=== PATIENT | female | born 1960 | race Caucasian/White ===

== ENCOUNTER 2021-06-03 17:19 | Emergency (ER) | payer MEDICARE, OTHER, SELFPAY ==
--- NOTE | ~2021-06-03 | XR_ITS ---
XR chest 2V 06/03/2021 17:44 Indication: Left-sided chest pain and shortness of breath Procedure: AP and lateral views of the chest Comparison: Comparison to multiple prior studies sequentially, with oldest reviewed study dated 10/30. Findings: Right basilar atelectasis/scarring. Elevated right diaphragm. There is scoliosis. Cardiomeg haven. There is right shoulder arthroplasty. There is severe glenohumeral joint osteoarthritis. No foca l pneumonia, pleural effusion, edema or pneumothorax. Impression: 1: Right basilar atelectasis/scarring with elevation the right diaphragm. Reviewed, dictated and finalized at location A. Impression: 1: Right basilar atelectasis/scarring with elevation the right diaphragm.
--- NOTE | 2021-06-03 17:21 | ECG_ITS ---
Measurements Intervals [place] Rate: 119 P: 66 NE: 147 QRS: -20 QRSD: 82 T: 5 QT: 306 QTc: 432 Interpretive Statements SINUS TACHYCARDIA LOW QRS VOLTAGE IN PRECORDIAL LEADS BORDERLINE R WAVE PROGRESSION, ANTERIOR LEADS INFERIOR INFARCT, AGE INDETERMINATE BORDERLINE T WAVE ABNORMALITY- ANTERIOR LEADS BASELINE ARTIFACT- I, II, III, AVR, AVL, AVF, V1-V6 ABNORMAL ECG Electronically Signed On 06-03-2021 19:55:01 CDT by Jerardo Grubbs D.O.
[2021-06-03 17:52] VITALS: BP 148/104; PULSE 118; TEMP 37.1; O2SAT 96
[2021-06-03 17:57] VITALS: BP 170/100; PULSE 117; RESP 18; TEMP 36.7; O2SAT 98
[2021-06-03 18:03] LABS: Basophils Absolute Auto 0.1 K/mm3 (0.0-0.1); Basophils Percent Auto 0.8 % (0.2-1.2); Eosinophils Percent Auto 0.1 % (0-4.4); Hematocrit 32.3 % (37.0-47.0); Hemoglobin 10.2 g/dL (12.0-15.0); Immature Granulocyte Absolute 0.09 K/mm3 (0.00-0.031); Lymphocytes Absolute Auto 1.46 K/mm3 (0.9-3.2); Lymphocytes Percent Auto 16.7 % (18.3-44.2); Mean Corpuscular HGB Conc 31.6 g/dl (32-36); Mean Corpuscular Hemoglobin 27.3 pg (26-34); Mean Corpuscular Volume 86.6 fl (80-100); Mean Platelet Volume 8.9 fl (7.4-10.4); Monocytes Absolute Auto 0.5 K/mm3 (0.1-0.6); Monocytes Percent Auto 6.2 % (2.6-8.5); Neutrophils Absolute Auto 6.6 K/mm3 (1.3-6.7); Neutrophils Percent Auto 75.2 % (45.5-73.1); Platelet Count Result 358 k/mm3 (150-375); Red Blood Count 3.73 M/mm3 (4.2-5.4); White Blood Count 8.8 K/mm3 (4.5-10.0)
[2021-06-03 18:17] LABS: Anion Gap 14 mmol/L (8-16); Blood Urea Nitrogen 13 mg/dL (7-17); Calcium 9.2 mg/dL (8.4-10.2); Carbon Dioxide 24 mmol/L (22-30); Chloride 98 mmol/L (98-107); Estimated CRCL calculation 73 ml/min; Estimated Glomerular Filt Rate > 60; Glucose 85 mg/dL (65-105); Potassium 4.4 mmol/L (3.4-5.0); Sodium 136 mmol/L (137-145)
[2021-06-03 18:29] LABS: Troponin I < 0.012 ng/mL (0.000-0.034)
[2021-06-03 18:59] LABS: INR 0.9; Prothrombin Time 12.3 Seconds (11.1-14.7)
[2021-06-03 19:00] LABS: Partial Thromboplastin Time 31.6 SECONDS (22.3-36.8)
[2021-06-03 20:39] LABS: Troponin I < 0.012 ng/mL (0.000-0.034)
[2021-06-03 20:55] VITALS: BP 159/100; PULSE 117; RESP 18; O2SAT 98
[2021-06-03] MEDS: ONDANSETRON INJ 4 MG/2 ML VIAL IV PUSH (21:21)
[2021-06-03] MEDS: SODIUM CHLORIDE 0.9% IV 1,000 ML 999 ML IV CONT (21:21)
[2021-06-03] MEDS: LORazepam INJ (*CRX) 2 MG/ML VIAL 1 MG IV PUSH (21:30)
--- NOTE | 2021-06-03 22:33 | ED.CHESTPAIN ---
HPI - Chest Pain General Chief Complaint: Chest Pain Stated Complaint: chest pain, L arm pain Time Seen by Provider: 06/03/21 20:46 Source: patient Mode of arrival: ambulatory Limitations: no limitations History of Present Illness HPI narrative: 60-year-old with history of MICA, alcoholism here with complaints of chest pain. Patient states that she is basically here for alcohol abuse. She states that she gets depressed once in a while whenever she thinks about her son. She states she binge drinks whenever she thinks about her son. She states she is not suicidal. complaint: chest discomfort Onset (ago): day(s) (1) Timing of current episode: constant Severity: mild Quality: aching Exacerbating factors: nothing Risk Factors Coronary artery disease risk factors: none Thoracic aortic dissection risk factors: none Related Data Allergies Allergy/AdvReac Type Severity Reaction Status Date / Time butorphanol Allergy Severe FELLING Verified 06/03/21 22:14 DISCONNECTED, PRICKLY SKIN codeine Allergy Unknown Unknown Verified 06/03/21 22:14 morphine Allergy Unknown Unknown Verified 06/03/21 22:14 OPIATEAGONISTS Allergy Mild Unknown Uncoded 06/03/21 22:14 Review of Systems Review of Systems: All systems reviewed & are unremarkable except as noted in HPI and below Constitutional: Constitutional: Reports no additional constitutional complaints Eyes: Eyes: Reports no additional eye complaints ENT: Reports system reviewed and no additional complaints, except as documented Cardiovascular: Cardiovascular: Reports as per HPI Respiratory: Respiratory: Reports no additional respiratory complaints Gastrointestinal: Gastrointestinal: Reports no additional gastrointestinal complaints Musculoskeletal: Musculoskeletal: Reports no additional musculoskeletal complaints Neurologic: Reports system reviewed and no additional complaints, except as documented [facility] Family History Family History Mother Diabetes mellitus Family history of cardiovascular disease Family history of arthritis Father Family history of congenital heart disease Cerebrovascular accident, Onset Age: 62 Other Family history of malignant neoplasm Hypertension Social History Social History Smoking status: Never smoker Alcohol intake: never Gender identity (if verbalized by the patient): Female Exam Narrative: Exam Narrative: GENERAL: Well-appearing,obese, and in no acute distress. HEAD: Normocephalic, atraumatic. EYES: PERRLA and EOMI.. NECK: Supple. CHEST: Clear to auscultation. No respiratory distress. HEART: Regular rate and rhythm. No murmur heard. Normal peripheral pulses. ABDOMEN: Soft, nontender, nondistended, normal active bowel sounds. EXTREMITIES: Normal range of motion. No edema. SKIN: Warm, dry, no rash. NEURO: No focal deficits. Alert and oriented x3. PSYCH: Normal mood and affect. Course Course Emergency Course: Patient received a liter of fluid, 4 mg Zofran and Ativan. She states that she is feeling much better. I informed her about her lab work and x-ray and EKG findings. Advised her to consider alcohol rehab. She does feel comfortable going home. Vital Signs Vital signs: Vital Signs Temperature 37.1 C 06/03/21 17:52 Pulse Rate 118 H 06/03/21 17:52 Blood Pressure 148/104 H 06/03/21 17:52 Pulse Oximetry 96 06/03/21 17:52 Temperature 36.7 C 06/03/21 17:57 Pulse Rate 117 H 06/03/21 20:55 Respiratory Rate 18 06/03/21 20:55 Blood Pressure 159/100 H 06/03/21 20:55 Pulse Oximetry 98 06/03/21 20:55 MDM - Chest Pain Differential Diagnosis Differential diagnosis: Likely fracture of rib, unstable angina pectoris and atypical chest pain Lab Data Result diagrams: 06/03/21 17:48 06/03/21 17:48 Labs: Lab Results 06/03/21
[2021-06-03] MEDS: ONDANSETRON HCL ODT 4 MG TABLET PO (23:49)
[2021-06-03 23:57] VITALS: BP 159/84; PULSE 89; RESP 20; O2SAT 98
== END 2021-06-04 | disposition home or self-care (01) ==
PROVIDERS: Emergency Medicine; Emergency Provider Family Medicine; PCP Internal Medicine
DX: R07.89 Other chest pain (principal); F10.20 Alcohol dependence, uncomplicated; G47.33 Obstructive sleep apnea (adult) (pediatric); R00.0 Tachycardia, unspecified; R94.31 Abnormal electrocardiogram [ECG] [EKG]
CPT/HCPCS: 36415; 71046; 80048; 84484; 85025; 85610; 85730; 93005; 96361; 96374; 96375; 99284; A9270; J2060; J2405; J7030

== ENCOUNTER 2021-07-16 04:02 | Day surgery (SDC) | payer MEDICARE, SELFPAY ==
--- NOTE | 2021-07-16 07:16 | WPDHPUPDATE1 ---
History and Physical Update Update Date/Time: 07/16/21 07:16 History and Physical has been reviewed, including an updated exam of the patient. There are NO changes in the patient's condition. Risks, benefits, and alternatives have been discussed and questions answered. Patient agrees to proceed with procedure.
[2021-07-16] MEDS: LACTATED RINGERS 1,000 ML 30 ML IV CONT (07:42)
[2021-07-16 07:43] VITALS: BP 132/68; PULSE 116
--- NOTE | 2021-07-16 07:43 | WPDANESEPPF ---
Anes - Initial Pre Proc Eval Procedure: Operation Date: 07/16/21 08:15 Proposed Procedures p Release Dupuytren's Contracture Right Small Finger - Braydon Greenwood MD Date/Time: 07/16/21 07:43 Surgeon: Braydon Gerenwood MD Pre Op Diagnosis: dupuytrens contracture right little finger Patient Data Age: 60 Gender: F Height: Weight: Allergies Allergy/AdvReac Type Severity Reaction Status Date / Time codeine Allergy Severe Dyspnea / Verified 07/14/21 10:07 SOB morphine Allergy Severe Difficulty Verified 07/14/21 10:07 Breathing butorphanol AdvReac Severe FELLING Verified 07/15/21 15:19 DISCONNECTED, PRICKLY SKIN OPIATEAGONISTS AdvReac Mild Nausea Uncoded 07/15/21 15:19 Home Medications Medication Instructions Recorded Confirmed Type atorvastatin 40 mg PO DAILY 07/14/21 07/14/21 History calcium 250 mg PO DAILY 07/14/21 07/14/21 History certolizumab pegol [Cimzia] 400 mg SUBCUT 07/14/21 History duloxetine [Cymbalta] 60 mg PO DAILY 07/14/21 07/14/21 History gabapentin 900 mg PO HS 07/14/21 07/14/21 History losartan 100 mg PO DAILY 07/14/21 07/14/21 History multivitamin 1 cap PO DAILY 07/14/21 07/14/21 History Patient hx anesthesia problems: none Family hx anesthesia problems: none PMFSH Past Medical History Medical History (Updated 07/16/21 @ 07:44 by Thierno Arevalo MD) Morbid obesity Rheumatoid arthritis Surgical History Surgical History (Updated 07/16/21 @ 07:44 by Thierno Arevalo MD) History of gastric surgery Family History Family History Mother Diabetes mellitus Family history of cardiovascular disease Family history of arthritis Father Family history of congenital heart disease Cerebrovascular accident, Onset Age: 62 Other Family history of malignant neoplasm Hypertension Social History Social History Smoking status: Never smoker Alcohol intake: never Living arrangements: with family Gender identity (if verbalized by the patient): Female Spiritual care concerns: No Anes - Eval Final PreProcedure Day of Procedure 07/16/21 07:43 Patient weight: morbidly obese Heart: regular rate and rhythm Lungs: clear to auscultation Airway: Mallampati scale class II Neurological: alert and oriented Last oral intake: >/= 8 hours ASA classification: III Emergent: no Anesthetic plan: proceed Anesthesia type and monitoring: general GIVS and standard monitoring Informed Consent: The patient's anesthetic plan and its attendant risks and benefits were discussed with the patient/family/POA. Questions were solicited and answers provided to the satisfaction of the patient/family/POA.
--- NOTE | 2021-07-16 08:49 | SUR.OPER ---
BACITRACIN OINTMENT SENT HOME WITH PT FOR POST OP USE
[2021-07-16 09:55] VITALS: BP 160/80; PULSE 103; RESP 20; O2SAT 94
--- NOTE | 2021-07-16 10:21 | PM.OP ---
Procedure Note - Brief Procedure Note - Brief Date of procedure: 07/16/21 Pre-op diagnosis: dupuytrens contracture right little finger Post-op diagnosis: same Procedure performed: Partial palmar fasciectomy right small finger Anesthesia: GLMA Surgeon: Braydon Greenwood MD [employer] Caretaker: [facility] Estimated blood loss (mL): 0 Drains: No Packing: No Pathology: none sent Complications: No immediate complications Condition: stable Disposition: same day
[2021-07-16 10:35] VITALS: BP 159/75; PULSE 101; RESP 20
--- NOTE | 2021-07-16 11:06 | W.PM.PROC2 ---
Procedure Note - Detailed Date of Procedure 07/16/21 Pre-op Diagnosis dupuytrens contracture right little finger Post-op Diagnosis same Procedure Performed Partial palmar fasciectomy of the right small finger. Surgeon Braydon Greenwood MD [employer] [facility] Anesthesia MAC Indications Dupuytren's contracture the right little finger with minimal palmar cords Findings Thick pretendinous and lateral cords with rudimentary spiral cords, Description of Procedure The patient's small finger was marked in the holding area. The hand was carefully examined again, there were no significant cords reaching into the palm or to other fingers. She had a marked flexion contracture at the proximal interphalangeal joint and palpable nodules in the proximal and middle phalanges. She was taken to the operating room placed supine on the operating table a time-out was held and confirmed she was given IV sedation. The extremity was prepped and draped in usual fashion. The markings were placed down the midline to the distal palmar crease. A small amount of lidocaine with epinephrine was placed at the proximal end of the marking. The tourniquet was inflated to 250 mmHg. The volar midline incision was made extending to the distal palmar crease. The skin flaps were elevated to both sides. The neurovascular bundles were identified on both sides. These were dissected distally on both sides allowing removal of the contracted tissue. Full release of the flexion contracture was achieved. The markings were made for 2 Z-plasties. These were cut, rotated and inset with 5 0 nylon. The wound was closed with 5 0 nylon. About senior living through that the tourniquet was released. The finger did not pink up immediately. After completion of the closure, 2 milliliter of 2% lidocaine plain were injected at the base of the digit. Warm saline was used to bathe the digit for about 5 minutes. At that point pink color did return to the finger and we proceeded to apply the soft bandage. Estimated Blood Loss 0 Drains No Packing No Pathology none sent Complications No immediate complications Condition stable Disposition same day
== END 2021-07-16 10:50 | disposition home or self-care (01) ==
PROVIDERS: PCP Internal Medicine; Visit Provider Plastic Surgery
PROC: (CPT 26045; principal; 2021-07-16 08:15)
DX: M72.0 Palmar fascial fibromatosis [Dupuytren] (principal); M06.9 Rheumatoid arthritis, unspecified; Z98.84 Bariatric surgery status; E66.01 Morbid (severe) obesity due to excess calories
CPT/HCPCS: 26123; A9270; J2704; J3010; J7120

== ENCOUNTER 2021-08-12 14:44 | Outpatient (CLI) | payer MEDICARE, OTHER, SELFPAY ==
--- NOTE | ~2021-08-12 | CT_ITS ---
EXAMINATION: CT abdomen pelvis w con INDICATION: Right lower quadrant pain TECHNIQUE: Computed tomographic images of the abdomen and pelvis were obtained after the administrati on of 100 cc of Omnipaque 350 intravenous contrast. The dose-length product (DLP) was 1598.34 mGy-cm. Automated exposure control and iterative reconstruction technique were employed. COMPARISON: None available FINDINGS: There is elevation of the right hemidiaphragm with passive atelectasis of the right lower l obe. Bilateral breast implants are noted. The heart size is normal. Changes in the stomach are consis tent with gastric bypass surgery. The gallbladder is surgically absent. There is mild enlargement of the common bile duct and central intrahepatic ducts which is likely due to post cholecystectomy state . The liver, spleen, pancreas, and adrenal glands are normal. The kidneys are unremarkable. There are changes of mesh ventral hernia repair in the epigastrium. No pathologically enlarged abdominal or pe lvic lymph nodes are identified. There is no free intraperitoneal gas or evidence of bowel obstructio n. The appendix is normal. There are bilateral L4 pars defects with grade 1 anterolisthesis of L4 on L5. Severe spondylosis is noted L5-S1. IMPRESSION: 1. No CT correlate for the patient's symptoms. Reviewed, dictated and finalized at location A.
--- NOTE | ~2021-08-12 | XR_ITS ---
EXAMINATION: XR hip BI 2V w AP pelvis, XR sacrum coccyx min 2V, XR lumbar spine 2-3V DATE: 08/12/2021 at 1:31 PM INDICATION: Generalized pelvic/hip pain, right greater than left. TECHNIQUE: 1. AP and lateral views of the lumbar spine were obtained. 2. AP, angled AP and lateral views of the sacrum and coccyx were obtained. 3. AP view of the pelvis and AP, frog-leg lateral and crosstable lateral views of both the left and r ight hips were obtained. COMPARISON: None. FINDINGS: Lumbar spine: Lumbar levorotoscoliosis with 13 degrees levocurvature measured between L1 and L4. 10 mm anterolisthe sis L4 on L5. On the lateral view of the sacrum there is suggestion of possible L4 pars interarticula ris defect. Vertebral body heights are normal. Moderate disc height loss at T11-T12 and L4-L5 and mil d disc height loss at T10-T11, T12-L1, L1-L2 and L5-S1. Severe lower lumbar facet osteoarthritis. Pelvis, bilateral hips, sacrum and coccyx: Bone alignment is normal at the pelvis and bilateral hips. Sacral arches are intact. No fractures. N o suspected avascular necrosis. Bilateral hip joint and sacroiliac joint spaces are normal. A few phl eboliths in the right hemipelvis. Postoperative changes in the upper abdomen suggesting ventral herni a repair. IMPRESSION: 1. Mild lumbar levorotoscoliosis with moderate to severe lower lumbar spondylosis. 2. 10 mm anterolisthesis L4 on L5 with suggestion of possible pars interarticularis defect. Could con administrative office clerk oblique views of the lumbar spine for more definitive determination. 3. Pelvis including the sacrum, coccyx and bilateral hips is unremarkable. Reviewed, dictated and finalized at location A. IMPRESSION: 1. Mild lumbar levorotoscoliosis with moderate to severe lower lumbar spondylos is. 2. 10 mm anterolisthesis L4 on L5 with suggestion of possible pars interarticul donta defect. Could consider oblique views of the lumbar spine for more definiti ve determination. 3. Pelvis including the sacrum, coccyx and bilateral hips is unremarkable. IMPRESSION: 1. Mild lumbar levorotoscoliosis with moderate to severe lower lumbar spondylos is. 2. 10 mm anterolisthesis L4 on L5 with suggestion of possible pars interarticul donta defect. Could consider oblique views of the lumbar spine for more definiti ve determination. 3. Pelvis including the sacrum, coccyx and bilateral hips is unremarkable.
[2021-08-12 15:40] LABS: Estimated Glomerular Filt Rate 51
== END 2021-08-12 14:45 | disposition home or self-care (01) ==
PROVIDERS: PCP Internal Medicine; Visit Provider Internal Medicine
DX: M25.551 Pain in right hip (principal); R10.31 Right lower quadrant pain; M47.896 Other spondylosis, lumbar region
CPT/HCPCS: 72100; 72220; 73521; 74177; Q9967

== ENCOUNTER 2023-02-02 09:31 | Outpatient (CLI) | payer OTHER, SELFPAY ==
[2023-02-02 18:15] LABS: Alanine Aminotransferase 22 U/L (6-35); Alkaline Phosphatase 81 U/L (38-126); Aspartate Amino Transferase 25 U/L (14-36); Bilirubin,Total 0.3 mg/dL (0.2-1.3)
[2023-02-02 18:26] LABS: Basophils Absolute Auto 0.1 K/mm3 (0.0-0.1); Basophils Percent Auto 0.9 % (0.2-1.2); Eosinophils Absolute Auto 0.3 K/mm3 (0-0.3); Eosinophils Percent Auto 3.7 % (0-4.4); Hemoglobin 11.2 g/dL (12.0-15.0); Immature Granulocyte Absolute 0.02 K/mm3 (0.00-0.031); Immature Granulocyte Percent A 0.2 % (0-0.5); Lymphocytes Absolute Auto 2.43 K/mm3 (0.9-3.2); Lymphocytes Percent Auto 27.6 % (18.3-44.2); Mean Corpuscular HGB Conc 30.3 g/dl (32-36); Mean Corpuscular Hemoglobin 29.5 pg (26-34); Mean Corpuscular Volume 97.4 fl (80-100); Mean Platelet Volume 10.4 fl (7.4-10.4); Monocytes Absolute Auto 1.4 K/mm3 (0.1-0.6); Monocytes Percent Auto 16.1 % (2.6-8.5); Neutrophils Absolute Auto 4.5 K/mm3 (1.3-6.7); Neutrophils Percent Auto 51.5 % (45.5-73.1); Platelet Count Result 364 k/mm3 (150-375); Red Cell Distribution Width 17.5 % (11.5-14.5); White Blood Count 8.8 K/mm3 (4.5-10.0)
[2023-02-02 18:38] LABS: Iron 19 ug/dL (37-170)
[2023-02-02 18:51] LABS: Percent Iron Saturation 5 % (20-50)
[2023-02-02 18:58] LABS: Free T4 Free Thyroxine 1.19 ng/mL (0.78-2.19)
[2023-02-05 14:18] LABS: GGT 37 U/L (3-65)
== END 2023-02-02 09:32 | disposition home or self-care (01) ==
LOC: ANHGOSHLAB 09:33
PROVIDERS: PCP Family Medicine; Visit Provider Nurse Practitioner Family
DX: D64.9 Anemia, unspecified (principal); E03.9 Hypothyroidism, unspecified; R74.8 Abnormal levels of other serum enzymes; D50.9 Iron deficiency anemia, unspecified
CPT/HCPCS: 36415; 80076; 82728; 82977; 83540; 83550; 84439; 84443; 85025

== ENCOUNTER 2023-04-06 11:23 | Outpatient (CLI) | payer OTHER, SELFPAY ==
--- NOTE | ~2023-04-06 | XR_ITS ---
Left Knee Technique: AP, lateral, and sunrise views were obtained. Clinical History: Pain Findings: No fracture or dislocation is seen. Total knee arthroplasty hardware is in place. There are probable loose bodies in the suprapatellar region of the joint versus heterotopic ossification.. Pro bable small joint effusion is seen. Impression: Probable small joint effusion with suspected loose bodies versus heterotopic ossification at the supr apatellar region. Total knee arthroplasty hardware in place. Reviewed, dictated and finalized at location M. Impression: Probable small joint effusion with suspected loose bodies versus heterotopic os sification at the suprapatellar region. Total knee arthroplasty hardware in place.
== END 2023-04-06 11:24 | disposition home or self-care (01) ==
LOC: ANHIMG 11:25
PROVIDERS: PCP Nurse Practitioner Family; Visit Provider Nurse Practitioner Family
DX: M25.562 Pain in left knee (principal)
CPT/HCPCS: 73562

== ENCOUNTER 2024-01-05 11:15 | Outpatient (RCR) | payer OTHER, MEDICAID, SELFPAY ==
--- NOTE | 2023-11-18 09:38 | PTOPEVAL1 ---
Assessment and note entered by Rolando Murray, PT Evaluation Information Assessment Status Evaluation Diagnosis Left knee pain, rheumatoid arthritis Onset March 2023 Subjective Information Reports that she has been on home health and inpatient rehab following her quad rupture in March. She was walking and driving prior to that. She fell and ruptured her quad and now is not ambulating. She has done some short walking with a walker but is uncomfortable doing it at home. She has been doing okay with transfers. Unable to navigate stairs. Right leg is mostly able to support her. Reported Pain Level Pain Score 5: Self Report Assessment PT Clinical Summary Patient presents with significant left ankle and knee deformity affecting quad control and functional mobility. She does have a strong right LE which helps significantly with transfers. She will benefit from skilled therapy to improve core and hip control with emphasis on knee extension ROM and strengthening to promote stability for returning to walking. Patient ambulatory independently prior to quad rupture earlier this year and has had significant medical issues since. Plan of Care Interventions Gait Training,Manual Therapy,Neuro Re-education, Patient/Caregiver Education,Therapeutic Activities, Therapeutic Exercise PT Services Indicated Yes Treatment Frequency and 2x/week for 8 visits Duration These treatments will address the objective and functional deficits as defined above. The patient will be advanced safely and appropriately in order for the patient to progress towards his/her prior level of function. Additional exercises will be introduced and as well as a comprehensive home exercise program upon discharge, if needed, ?to ensure carryover of functional gains achieved in the clinic. This treatment plan has been reviewed and agreement upon by the patient.
--- NOTE | 2023-11-18 09:38 | OPREHPOC ---
Outpatient Therapy Plan of Care This is a Multidisciplinary Plan of Care that may contain components documented by all disciplines (PT, OT, and ST.) PT Problem 1 PT Problem #1 Knowledge Deficit PT Goal 1 Goal [place] with knee and hip strengthening Target Visit 4 PT Problem 2 PT Problem #2 Impaired Range of Motion PT Goal 1 Goal Patient will achieve terminal L knee extension to allow for reducing arc on quad strain for standing and walking activity. Target Visit 8 PT Problem 3 PT Problem #3 Impaired Strength PT Goal 1 Goal Improve L knee extension strength to 4/5 to improve stability and control for functional squatting, stais, and walking Target Visit 8 PT Goal 2 Goal Improve brittnee hip abduction strength to 4+/5 to improve lateral stability with walking and transfers Target Visit 8 PT Problem 4 PT Problem #4 Impaired Gait PT Goal 1 Goal Patient will ambulate for 300' with 2 wheeled walker and CGA for home mobility Target Visit 8 PT Goal 2 Goal Demonstrate ability to ascend and descend 3 steps for community and home stair navigation Target Visit 8
--- NOTE | 2023-12-13 09:46 | PCPTNOTE ---
Patient called to cancel secondary to car trouble.
--- NOTE | 2023-12-20 15:42 | PCPTNOTE ---
pt did not show for today's reevaluation, called her and she stated she forgot about the appointment. Rescheduled reeval with the clerical staff.
--- NOTE | 2023-12-26 08:20 | PCPTNOTE ---
pt did not show for today's reevaluation appt. Called and left her a voice mail message with reminder of next appt; she has treatment appts scheduled past her reeval appt.
--- NOTE | 2023-12-29 14:06 | PCPTNOTE ---
Pt. called and cancelled her appointment on this date. Caio Landaverde, MPT
--- NOTE | 2024-01-05 12:24 | PTOPPROG ---
Assessment and note entered by Caio Landaverde Evaluation Information Assessment Status Progress Diagnosis left knee pain, rheumatoid arthritis Onset March 2023 Subjective Information Pt. reports that she has had a sinus infection, making attendance difficult. She recently talked with her doctor who requested her participation in Rx 3x/week. She reports she feels good doing exercise in the pool. She reports that she is probably standing about 10% of her day. She reports that she is starting to feel better and anticipates her participation in therapy will improve. Assessment PT Clinical Summary Mrs. Boateng has attended a total of 9 treatment session, with the majority of sessions focused in an aquatic setting. She has had poor attendance recently due to illness, which has resulted in a lack of noted progress. She has great potential to improve standing endurance, l.e. strength and overall function. Expressed to the pt. the importance of consistent attendance and she assured that she would be able to attend at an increased frequency to allow for a better opportunity to establish functional progress. In hopes of totally weaning the pt. from an aquatic environment suggest alternating between land based treatment and aquatic treatment. Aquatics will still be indicated due to continued pain at the left l.e. and her continued inability to bear significant weight through the left leg. She continues to present with l.e. weakness, impaired gait, impaired balance and functional decline indicating the need for continued skilled PT services. Plan of Care Interventions Aquatic Therapy,Electrical Stimulation,Gait Training,Manual Therapy,Neuro Re-education, Therapeutic Activities,Therapeutic Exercise PT Services Indicated Yes Treatment Frequency and 3x/week x 10 visits alternating between aquatic Duration and land based treatment. These treatments will address the objective and functional deficits as defined above. The patient will be advanced safely and appropriately in order for the patient to progress towards his/her prior level of function. Additional exercises will be introduced and as well as a comprehensive home exercise program upon discharge, if needed, ?to ensure carryover of functional gains achieved in the clinic. This treatment plan has been reviewed and agreement upon by the patient.
--- NOTE | 2024-01-10 09:54 | PCPTNOTE ---
Pt's cancelled due to pt being in hospital.
--- NOTE | 2024-01-12 14:30 | PCPTNOTE ---
Pt did not show however cancelled previous appointment this week as she was in the hospital.
--- NOTE | 2024-01-18 09:05 | PCPTNOTE ---
Mrs. Murphy attended a total of 9 treatment sessions. Following pt. visit on 01/05/24, she was hospitalized, and contacted the clinic not knowing when she would be discharged. She requested to cancel all current scheduled appointments and will be discharged from our care at this time. Caio Landaverde, MPT
== END 2024-01-18 10:06 | disposition home or self-care (01) ==
LOC: ANHPT 11:15
PROVIDERS: PCP Nurse Practitioner Family; Visit Provider Nurse Practitioner Family
DX: M06.9 Rheumatoid arthritis, unspecified (principal); M25.562 Pain in left knee; L40.50 Arthropathic psoriasis, unspecified
CPT/HCPCS: 97110; 97112; 97113; 97116; 97161; 97530; 99199

== ENCOUNTER 2024-03-22 10:30 | Outpatient (RCR) | payer OTHER, MEDICAID, SELFPAY ==
--- NOTE | 2024-02-21 14:29 | OPREHPOC ---
Outpatient Therapy Plan of Care This is a Multidisciplinary Plan of Care that may contain components documented by all disciplines (PT, OT, and ST.) PT Problem 1 PT Problem #1 Knowledge Deficit PT Goal 1 Goal Pt to be IND with issued HEP Target Visit 10 PT Problem 2 PT Problem #2 Impaired Gait PT Goal 1 Goal pt to improve 2 min walk distance from 110ft to 200ft Target Visit 10 PT Problem 3 PT Problem #3 Impaired Strength PT Goal 1 Goal Pt to demonstrate L knee extension strength of 4/5 Target Visit 10 PT Goal 2 Goal Pt to demonstrate 10 full range glute bridges to demonstrate improved strength for sit <> stands. Target Visit 10 PT Problem 4 PT Problem #4 Impaired Functional Mobil PT Goal 1 Goal Pt to be able to perform a sit <> stand without UE support Target Visit 10
--- NOTE | 2024-02-21 14:29 | PTOPEVAL1 ---
Assessment and note entered by Forest Yeboah, PT, DPT Evaluation Information Assessment Status Evaluation Diagnosis post hospital admission Subjective Information Pt was recently admitted to the hospital from 01/10 to 02/03/24 for stroke like symptoms. She states she has been non ambulatory for about 6 months and prior to the hospital was using a wheelchair d /t a quad tendon rupture. She was in therapy for this prior to her hospitalization. Reported Pain Level Pain Score 2,2: Self Report Assessment PT Clinical Summary Kim presents to therapy today for her initial evaluation following a prolonged hospital stay, she has multiple other comorbidities contributing to her decreased mobility status. Comorbidities include a ruptured quad tendon repair, past brittnee TKAs, prior L ankle reconstructions, and RA. Today she demonstrates significant quad weakness when compared to her R side. This weakness is contributing to her decreased gait tolerance, gait deviations, and overall decreased functional mobility. She is at an increased risk of falls d/t her poor mobility status. Skilled therapy services are indicated to address the deficits noted above, to manage pain, and to improve overall mobility. Plan of Care Interventions Aquatic Therapy,Check Out for Orthotic/Pr, Electrical Stimulation,Gait Training,Hot Pack/Cold Pack,Manual Lymph Drainage,Manual Therapy,Neuro Re-education,Patient/Caregiver Educati,Therapeutic Activities,Therapeutic Exercise PT Services Indicated Yes Treatment Frequency and 2x/wk for 10 visits Duration These treatments will address the objective and functional deficits as defined above. The patient will be advanced safely and appropriately in order for the patient to progress towards his/her prior level of function. Additional exercises will be introduced and as well as a comprehensive home exercise program upon discharge, if needed, ?to ensure carryover of functional gains achieved in the clinic. This treatment plan has been reviewed and agreement upon by the patient.
--- NOTE | 2024-03-14 10:02 | PCPTNOTE ---
Pt no showed appt today forgetting and too tired from the past few days.
--- NOTE | 2024-03-26 11:51 | PCPTNOTE ---
Patient's called & cancelled scheduled appointment this date, he stated she would not be able to make it. Will continue per POC.
--- NOTE | 2024-03-29 11:50 | PCPTNOTE ---
pt called and canceled appt due to being ill.
--- NOTE | 2024-04-02 13:15 | PCPTNOTE ---
Pt NS Aquatics today, left message on voicemail of next appt. day and time.
--- NOTE | 2024-04-09 08:17 | PCPTNOTE ---
pt called and canceled today's reevaluation appt;
--- NOTE | 2024-04-27 13:36 | PCPTNOTE ---
pt did not show for today's reeval appt.
--- NOTE | 2024-04-27 13:39 | PTOPDC ---
Assessment and note entered by Haven Kidd, PT Discharge Information Assessment Status Discharge - Pt Not Present Diagnosis post hospital admission Subjective Information pt was not seen this date Assessment PT Clinical Summary Kim has received 4 PT sessions, from February 20 to today. Her last treatment session was on March 22. She had a total of 3 call/cancel and 3 no show appointments. Discharge PT at this time. The goals were not addressed. Plan of Care PT Services Indicated No
== END 2024-04-27 14:28 | disposition home or self-care (01) ==
LOC: ANHPT 10:30
PROVIDERS: PCP Nurse Practitioner Family; Visit Provider Nurse Practitioner Family
DX: M25.562 Pain in left knee (principal); L40.50 Arthropathic psoriasis, unspecified; R60.0 Localized edema; R29.898 Other symptoms and signs involving the musculoskeletal system; Z91.81 History of falling
CPT/HCPCS: 97110; 97113; 97161; 99199

== ENCOUNTER 2024-04-03 13:14 | Observation (INO) | payer OTHER, MEDICAID, SELFPAY ==
[2024-04-03] VITALS (9 sets, daily range): BP systolic 145–162; BP diastolic 88–99; PULSE 104–115; RESP 16–22; TEMP 36.9–37; O2SAT 95–98; BMI 40.4
--- NOTE | ~2024-04-03 | CT_ITS ---
EXAMINATION: CT brain wo con DATE: 04/03/2024 14:52 INDICATION: Altered mental status. TECHNIQUE: Computed tomography (CT) of the head was performed without intravenous contrast. The mA wa s adjusted according to patient size. Iterative reconstruction technique was employed. The dose-lengt h product was 681.00 mGy-cm. COMPARISON: None FINDINGS: There is no intracranial hemorrhage, acute infarction, or abnormal intracranial mass lesion . The ventricles are normal in size. The orbits are normal. There is mild mucosal thickening in the e thmoid sinuses. The mastoid air cells are normal. IMPRESSION: 1. Normal brain. Reviewed, dictated and finalized at location A. IMPRESSION: 1. Normal brain.
--- NOTE | 2024-04-03 13:36 | ECG_ITS ---
SEE SCANNED COPY FOR CONFIRMED REPORT. MTDD
--- NOTE | 2024-04-03 13:46 | PC.NURSE ---
Spoke with [place] poison control , states pt did NOT take a toxic dose. But may have gi upset, drowsiness, anxiety, HTN, tachycardia, and a seizure risk. Peak hours are 6-10 hours after ingestion. Case# [id number]
[2024-04-03 13:47] LABS: Basophils Absolute Auto 0.1 K/mm3 (0.0-0.1); Basophils Percent Auto 0.6 % (0.2-1.2); Eosinophils Percent Auto 0.1 % (0-4.4); Hematocrit 35.4 % (37.0-47.0); Hemoglobin 11.7 g/dL (12.0-15.0); Immature Granulocyte Absolute 0.06 K/mm3 (0.00-0.031); Immature Granulocyte Percent A 0.7 % (0-0.5); Lymphocytes Absolute Auto 1.11 K/mm3 (0.9-3.2); Lymphocytes Percent Auto 13.5 % (18.3-44.2); Mean Corpuscular HGB Conc 33.1 g/dl (32-36); Mean Corpuscular Hemoglobin 27.5 pg (26-34); Mean Corpuscular Volume 83.1 fl (80-100); Mean Platelet Volume 9.3 fl (7.4-10.4); Monocytes Absolute Auto 0.8 K/mm3 (0.1-0.6); Monocytes Percent Auto 9.6 % (2.6-8.5); Neutrophils Absolute Auto 6.2 K/mm3 (1.3-6.7); Neutrophils Percent Auto 75.5 % (45.5-73.1); Platelet Count Result 410 k/mm3 (150-375); Red Blood Count 4.26 M/mm3 (4.2-5.4); Red Cell Distribution Width 18.7 % (11.5-14.5); White Blood Count 8.2 K/mm3 (4.5-10.0)
[2024-04-03 14:02] LABS: Acetaminophen < 10 ug/mL (10-30); Ethanol < 10 mg/dL (<10); Salicylate < 1.0 mg/dL (2-20)
[2024-04-03 14:03] LABS: Alanine Aminotransferase 18 U/L (6-35); Albumin Level 4.3 g/dL (3.5-5.1); Alkaline Phosphatase 129 U/L (38-126); Anion Gap 13 mmol/L (4-12); Aspartate Amino Transferase 32 U/L (14-36); Bilirubin,Total 0.7 mg/dL (0.2-1.3); Blood Urea Nitrogen 8 mg/dL (7-17); Calcium 8.9 mg/dL (8.4-10.2); Carbon Dioxide 21 mmol/L (22-30); Chloride 84 mmol/L (98-107); Estimated CRCL calculation 94 ml/min; Estimated Glomerular Filt Rate > 60; Glucose 108 mg/dL (65-110); Potassium 3.8 mmol/L (3.4-5.0); Sodium 118 mmol/L (137-145)
[2024-04-03 14:12] LABS: Appearance Urine Clear (Clear); Bilirubin Urine Negative (Negative); Blood Urine Negative (Negative); Color Urine Yellow (Yellow); Glucose Urine UA Negative (Negative); Ketones Urine Trace mg/dL (Negative); Leukocyte Esterase Ur Negative LEU/UL (Negative); Nitrate Urine Negative (Negative); Protein Urine Negative (Negative); Specific Grav Ur 1.007 (1.001-1.035); Urobilinogen Urine 0.2 mg/dL (<2.0); pH Urine 5.5 (5.0-9.0)
--- NOTE | 2024-04-03 14:14 | ED.CHESTPAIN ---
HPI - Chest Pain General Chief Complaint: Chest Pain Stated Complaint: chest pain Time Seen by Provider: 04/03/24 13:49 History of Present Illness HPI narrative: 63-year-old female present to the emergency department for evaluation for an intentional overdose. Patient states she had been drinking a lot last night and this morning and that she did take duloxetine around 11:00 a.m. this morning. Patient states she took 6 x 60 mg duloxetine for the intent killing herself. Patient states she does have SI Related Data Home Medications Medication Instructions Recorded Confirmed multivitamin 1 cap PO DAILY 07/14/21 04/03/24 cholecalciferol (vitamin D3) 125 125 mcg PO DAILY 09/22/22 04/03/24 mcg (5,000 unit) capsule mecobalamin (vitamin B12) 1,000 1,000 mcg PO DAILY 09/22/22 04/03/24 mcg chewable tablet acetaminophen 500 mg capsule 1,000 mg PO TID PRN Pain 01/26/23 04/03/24 aspirin 81 mg tablet,delayed 81 mg PO DAILY 05/23/23 04/03/24 release (Adult Aspirin Regimen) duloxetine 60 mg capsule,delayed 60 mg PO BID 05/23/23 04/03/24 release (Cymbalta) acamprosate 333 mg tablet,delayed 666 mg PO TID 02/07/24 04/03/24 release atorvastatin 40 mg tablet 40 mg PO DAILY 02/07/24 04/03/24 baclofen 10 mg tablet 10 mg PO TID PRN Muscle Spasm 02/07/24 04/03/24 diclofenac sodium 1 % topical gel 2 g topical QID PRN Muscle Pain 02/07/24 04/03/24 (Arthritis Pain (diclofenac)) folic acid 1 mg tablet 1 mg PO DAILY 02/07/24 04/03/24 levothyroxine 50 mcg tablet 50 mcg PO DAILY 02/07/24 04/03/24 naloxone 4 mg/actuation nasal 4 mg intranasal Q2M PRN Opioid 02/07/24 04/03/24 spray (Narcan) Overdose naproxen 250 mg tablet 250 mg PO BID PRN Pain 02/07/24 04/03/24 pantoprazole 40 mg tablet,delayed 40 mg PO QAM 02/07/24 04/03/24 release sennosides 8.6 mg-docusate sodium 1 tab-cap PO BID PRN Constipation 02/07/24 04/03/24 50 mg tablet (Senna with Docusate Sodium) thiamine HCl (vitamin B1) 100 mg 50 mg PO DAILY 02/07/24 04/03/24 tablet hydrocodone 10 mg-acetaminophen 1 tablet PO QID 04/03/24 04/03/24 325 mg tablet mirtazapine 30 mg tablet 30 mg PO HS 04/03/24 04/03/24 Allergies Allergy/AdvReac Type Severity Reaction Status Date / Time codeine Allergy Severe Dyspnea / Verified 03/29/24 12:55 SOB morphine Allergy Severe Difficulty Verified 03/29/24 12:55 Breathing butorphanol AdvReac Severe FELLING Verified 03/29/24 12:55 DISCONNECTED, PRICKLY SKIN levofloxacin [From Levaquin] AdvReac Intermediate Anxiety Verified 03/29/24 12:55 OPIATEAGONISTS AdvReac Mild Nausea Uncoded 03/29/24 12:55 Review of Systems Review of Systems: All systems reviewed & are unremarkable except as noted in HPI and below PMFSH Past Medical History Medical History Allergies Anemia Hemoglobin 9.9 on 09/23/2022. Hemoglobin 11.2 on 02/02/2023. Anxiety Arthritis At high risk for falls B12 deficiency Level 673 with folic acid greater than 24 with hemoglobin 9.9 on 09/23/2022. Bilateral lower extremity edema BMI 33.0-33.9,adult BMI 36.0-36.9,adult BMI 38.0-38.9,adult BMI 40.0-44.9, adult Constipation Depression Edema, peripheral Elevated glucose Elevated liver enzymes AST 60, ALT 104, alkaline phosphatase 192 on 09/23/2022. AST 25, ALT 22, alkaline phosphatase 81 with GGT 37 on 02/02/2023. Encounter to establish care GERD (gastroesophageal reflux disease) HTN (hypertension) Hyperlipidemia Cholesterol 150, triglycerides 90, HDL 76, LDL 57 on 09/23/2022. Hypothyroid TSH 4.68 with free T4 0.9 on 09/23/2022. TSH 3.17 with free T4 1.19 on 02/02/2023. IBS (irritable bowel syndrome) Iron deficiency anemia, unspecified iron 37 with 9% saturation and ferritin 17 with hemoglobin 9.9 and MCV 85 on 09/23/2022. Iron 19 with 5% saturation and ferritin 11.3 with hemoglobin 11.2 on 02/02/2023. Left arm weakness Left knee pain Left leg weakness Morbid obesity Psoriatic arthri
[2024-04-03 14:17] LABS: Add Urine Microscopic? NO
[2024-04-03 14:33] LABS: Amphetamine Screen Urine Negative (Negative); Barbiturate Screen Urine Negative (Negative); Benzodiazepines Screen Urine Positive (Negative); Cannabinoid Screen Urine Negative (Negative); Cocaine Screen Urine Negative (Negative); Methadone Screen Urine Negative (Negative); Opiate Screen Urine Negative (Negative); Phencyclidine Screen Urine Negative (Negative)
[2024-04-03 14:48] LABS: SARS-CoV-2 RNA PCR Negative (Negative)
[2024-04-03] MEDS: SODIUM CHLORIDE 0.9% IV 1,000 ML 999 ML IV CONT (15:08)
[2024-04-03] MEDS: LORazepam INJ (*CRX) 2 MG/ML VIAL IV PUSH (15:09)
--- NOTE | 2024-04-03 16:49 | PC.NURSE ---
upon arrival patient stated she drank a lot of alcohol , unable to perform [place] assessment. [place] assessment was performed and patient noted high risk. Patient had sitter at bedside entire duration of stay in ED.
--- NOTE | 2024-04-03 17:04 | PC.NURSE ---
This patient, Kim Murphy, was admitted to Intensive Care Unit-4. Patient/family oriented to hospital policies and general routines including ID bracelet, bed and alarms, visiting hours, pain management, procedures, bathroom and other care routines, personal items, smoking policy, room service/diet, and visiting hours. Information on how to activate the Rapid Response Team has been discussed. Patient/Family are encouraged to report perceived risks to care and to ask questions if they do not understand what they are told or what they should do.
[2024-04-03] MEDS: ONDANSETRON INJ 4 MG/2 ML VIAL IV PUSH ×2 (17:19→20:11)
[2024-04-03 18:05] LABS: Anion Gap 4 mmol/L (4-12); Blood Urea Nitrogen 7 mg/dL (7-17); Calcium 8.6 mg/dL (8.4-10.2); Carbon Dioxide 29 mmol/L (22-30); Chloride 88 mmol/L (98-107); Estimated CRCL calculation 96 ml/min; Estimated Glomerular Filt Rate > 60; Glucose 115 mg/dL (65-110); Potassium 3.6 mmol/L (3.4-5.0); Sodium 121 mmol/L (137-145)
--- NOTE | 2024-04-03 18:27 | PC.NURSE ---
received call from Sneha at [place] poison control; Sneha asked about any symptoms the patient had, did tell her some mild nausea and diarrhea; updated with vitals, last EKG reading, and toxicology results; Sneha stated the latest the medication would peak would be around 9-11pm tonight. would like for us to repeat another EKG, then will check back later
--- NOTE | 2024-04-03 18:33 | ECG_ITS ---
SEE SCANNED COPY FOR CONFIRMED REPORT MTDD
[2024-04-03 19:52] LABS: Creatinine Urine 7.1 mg/dL; Total Protein Urine Random 16 mg/dL; Ur Ttl Prot Creatinine Ratio 2.25 mg/mg (0-0.20)
[2024-04-03 19:53] LABS: Sodium Urine Random 51 meq/L
[2024-04-03] MEDS: ACETAMINOPHEN 325 MG TABLET 650 MG PO (20:06)
[2024-04-03 20:30] LABS: Urea Random Urine < 67 MG/DL
[2024-04-03 21:36] LABS: Triglycerides 105 mg/dL (<150)
[2024-04-04] VITALS (13 sets, daily range): BP systolic 139–157; BP diastolic 84–102; PULSE 101–117; RESP 16–23; TEMP 36.7–37.1; O2SAT 91–98
[2024-04-04] MEDS: HYDROcodone/acetaminophen (*CRX) 10-325 MG TABLET 1 TAB PO (01:44)
[2024-04-04 01:45] LABS: Sodium 127 mmol/L (137-145)
--- NOTE | 2024-04-04 02:13 | PM.IMHP ---
H&P: HPI History of Present Illness Date/Time: 04/04/24 01:13 Chief Complaint: Overdose on Cymbalta Narrative: 63-year-old female with past medical history of major depressive disorder with prior suicide attempt rheumatoid arthritis chronic pain on chronic opiate medications, morbid obesity, obstructive sleep apnea noncompliant with CPAP, hypothyroidism, essential hypertension, GERD and other multiple cor morbidities who presented to the ER with chest pain and intentional Cymbalta overdose. The patient reports that she has been under increasing social stressors. Her was recently let go from his job of 35 years. He is still awaiting his disability determination for his chronic back pain and subsequently they have been living off of her SSD. She reports that any time she gets overly stressed she tends to binge drink. This could be anywhere from every month to every couple of months. She will binge for 2 or 3 days until she finishes off a handle of vodka (1.75 L). She has been drinking for 3-4 days this time when she had and impulsive thought to ended all. She subsequently took 7 a 60 mg tablets of Cymbalta. Poison Control was contacted when patient arrived to the ER and recommended monitoring for signs of QT prolongation. Patient's EKG did not demonstrate any QT prolongation but was sinus tachycardia. Poison Control stated the patient's peak effective medications would be around 23:00 on the . Repeat EKG demonstrated normal QT interval. The patient was quite anxious on arrival to the ER and reported chest discomfort. She has had prior episodes of chest pain that is been evaluated through [facility] with negative cardiac workup in the past including stress test. Each time of found to be due to anxiety. She received Ativan in the ER with improvement in her symptoms. Initial sodium in the ER was 118 and patient received 1 L of IV fluids. Repeat sodium was up to 121 4 hours later. The patient reports that she frequently gets hyponatremic when she is drinking. Cymbalta can also cause some hyponatremia. The patient reports that her symptoms of depression have improved. She states she no longer wants actively herself and wants to be discharged in the morning. She gets tearful when discussing this. The patient also reports that she just does not feel right she denies feeling anxious. At the time of my evaluation the patient's pupils were markedly dilated. She informed me at that time that when she is actively drinking her will not let her have access to her pain medications. Subsequently she has not had her pain meds in 3-4 days. Her urine drug screen was also negative for opiates despite the patient being on oxycodone fitting with her report of not having her medications for several days. She states that she is due for refill on the oxycodone 15 mg the 50 tablets for 25 day supply in the next 3-5 days. This correlates with the patient's prescription drug monitoring history. She has been having small amounts of mushy stools that she is passing frequently since arrival to the ICU. She states that this usually happens when she drinks. She usually has opiate induced constipation and has to take Movantik at home. She reports chronic urinary frequency and large amount of urine output. This fits with the patient's greater than 2 L of urine output since admission. Patient has history of chronic and frequent falls. She states that this is of course worse when she drinks. She is not think she has had her head or lost consciousness with any recent falls. CTA of head performed in the ER was negative for acute process. Source of information from patient who is a relatively good historian, review of external records and ER physician and nursing report. Review of Systems Review of Systems: 12 systems were reviewed with pertinent positives and negatives per HPI. Except as documented in the HPI, all other systems were reviewed and are negative.
[2024-04-04] MEDS: DEXTROSE 5% IN WATER 500 ML 75 ML IV CONT (02:34)
[2024-04-04] MEDS: NAPROXEN 250 MG TABLET PO (05:43)
[2024-04-04] MEDS: LEVOTHYROXINE SODIUM 50 MCG TABLET PO (05:44)
[2024-04-04 06:54] LABS: Hematocrit 34.6 % (37.0-47.0); Hemoglobin 11.3 g/dL (12.0-15.0); Mean Corpuscular HGB Conc 32.7 g/dl (32-36); Mean Corpuscular Hemoglobin 27.4 pg (26-34); Mean Platelet Volume 9.2 fl (7.4-10.4); Platelet Count Result 371 k/mm3 (150-375); Red Blood Count 4.12 M/mm3 (4.2-5.4); Red Cell Distribution Width 18.6 % (11.5-14.5); White Blood Count 5.7 K/mm3 (4.5-10.0)
[2024-04-04 07:07] LABS: Alanine Aminotransferase 16 U/L (6-35); Albumin Level 3.7 g/dL (3.5-5.1); Alkaline Phosphatase 117 U/L (38-126); Anion Gap 3 mmol/L (4-12); Aspartate Amino Transferase 28 U/L (14-36); Bilirubin,Total 0.8 mg/dL (0.2-1.3); Blood Urea Nitrogen 5 mg/dL (7-17); Calcium 8.8 mg/dL (8.4-10.2); Carbon Dioxide 32 mmol/L (22-30); Chloride 92 mmol/L (98-107); Estimated CRCL calculation 84 ml/min; Estimated Glomerular Filt Rate > 60; Glucose 114 mg/dL (65-110); Magnesium 1.6 mg/dL (1.6-2.3); Potassium 3.3 mmol/L (3.4-5.0); Sodium 127 mmol/L (137-145)
--- NOTE | 2024-04-04 08:08 | PC.NURSE ---
Notified Dr. Good of the Sodium results from 0600. New orders to infuse D5W @ 250ml x 2hr and then recheck Sodium at 1000. Call Dr. oGod with results
[2024-04-04] MEDS: ATORVASTATIN 40 MG TABLET PO (08:38)
[2024-04-04] MEDS: GABAPENTIN 300 MG CAPSULE PO ×3 (08:39→16:29)
[2024-04-04] MEDS: CYANOCOBALAMIN 1,000 MCG TABLET 1000 MCG PO (08:39)
[2024-04-04] MEDS: FOLIC ACID 1 MG TABLET PO (08:39)
[2024-04-04] MEDS: DEXTROSE 5% IN WATER 500 ML 250 ML IV CONT (08:39)
[2024-04-04] MEDS: PANTOPRAZOLE 40 MG TABLET PO (08:39)
[2024-04-04] MEDS: amLODIPine BESYLATE 5 MG TABLET PO (08:39)
[2024-04-04] MEDS: ASPIRIN 81 MG ENTERIC TABLET PO (08:39)
[2024-04-04] MEDS: ENOXAPARIN 40 MG/0.4 ML SYRINGE SUB-Q (08:39)
[2024-04-04] MEDS: CHOLECALCIFEROL 1,000 UNITS TABLET 5000 UNITS PO (08:39)
[2024-04-04] MEDS: MULTIVITAMINS THERAPEUTIC TAB (*BKC) 1 TABLET PO (08:39)
[2024-04-04] MEDS: THIAMINE HCL 50 MG TABLET PO (09:20)
--- NOTE | 2024-04-04 10:27 | PM.IMPN ---
Progress Note: A&P Assessment and Plan (1) Drug overdose, intentional: Qualifiers: Encounter type: initial encounter Qualified Code(s): T50.902A - Poisoning by unspecified drugs, medicaments and biological substances, intentional self-harm, initial encounter Code(s): T50.902A - Poisoning by unspecified drugs, medicaments and biological substances, intentional self-harm, initial encounter Status: Acute (2) Acute hyponatremia: Code(s): E87.1 - Hypo-osmolality and hyponatremia Status: Acute (3) Hypothyroid: Qualifiers: Hypothyroidism type: acquired Qualified Code(s): E03.9 - Hypothyroidism, unspecified Code(s): E03.9 - Hypothyroidism, unspecified Status: Acute (4) Opiate withdrawal: Code(s): F11.93 - Opioid use, unspecified with withdrawal Status: Acute (5) Alcoholism: Code(s): F10.20 - Alcohol dependence, uncomplicated Status: Acute (6) Major depressive disorder: Qualifiers: Active/Remission status: currently active Major depression episode severity: severe Major depression recurrence: recurrent Psychotic features: without psychotic features Qualified Code(s): F33.2 - Major depressive disorder, recurrent severe without psychotic features Code(s): F32.9 - Major depressive disorder, single episode, unspecified Status: Acute Plan Patient has active major depressive disorder with suicidal ideation. She has attempted to take Cymbalta. Poison Control has been contacted. Patient is beyond peak for medication effect. Patient has not had any QT prolongation. Patient will need evaluation by crisis once medically stable. No arrhythmias noted on telemetry however patient is tachycardic. sinus tachycardia due to acute opiate withdrawal given patient's dilated pupils, anxiety and diarrhea. continue patient's home baclofen, diclofenac topical, naproxen, and Tylenol. Cymbalta has been placed on hold due to overdose and hyponatremia. Will hold the patient's home murmur on as this could also cause QT prolongation. Given the patient's looser stools will hold patient's home Movantik. acute hyponatremia, hypokalemia, Patient has acute hyponatremia was likely multifactorial due to alcohol intoxication and or medication effect. Patient reports that she always gets hyponatremic when she drinks heavily. The patient has already had significant correction of her hyponatremia. Her sodium had elevated from 118-121 after 1 L bolus. ordered a stat sodium level which had increased up to 127. started the patient on D5 water at 75 mL an hour with repeat sodium to be obtained 4 hours later. Given rapid correction hyponatremia, hypokalemia Likely resulting from alcohol intoxication than other causes. hold the patient's home Lasix. replete with potassium chloride Patient is alcoholic. She is on chronic folic acid and thiamine supplementation due to history of gastric bypass and alcoholism. This will be continued. Will check CIWA scores. Directions have been given to nursing to call if CIWA score greater than 8 for further medications as I do not Wanna add additional medications unless needed. Subjective Date/time seen: 04/04/24 10:27 Interval history: I saw exam patient today, patient feels comfortable, denies headache, chest pain, shortness breast, abdomen pain, nausea vomiting diarrhea dysuria. Labs reviewed, sodium level improving slowly, Exam Narrative: GENERAL: Pleasant, in no acute distress. Well-nourished. - EYES: EOMI. Anicteric. - HENT: Moist mucous membranes. - LUNGS: Clear to auscultation bilaterally, no wheezing, rhonchi, or rales. - CARDIOVASCULAR: Regular rate and rhythm. No murmur. No JVD. - ABDOMEN: Soft, non-tender and non-distended. No palpable masses. - EXTREMITIES: No edema. Peripheral pulses 2+. Non-tender. - NEUROLOGIC: No focal neurological deficits. CN II-XII grossly intact. - PSYCHIA
[2024-04-04 10:59] LABS: Sodium 125 mmol/L (137-145)
--- NOTE | 2024-04-04 11:37 | PM.CNNEP ---
Assessment and Plan Assessment and plan (1) Hyponatremia: Code(s): E87.1 - Hypo-osmolality and hyponatremia Status: Acute Assessment and Plan: acute however, she and her report this has happened before with her alcohol abuse some concern with overcorrection: sodium went from 118 to 127 in less than 24 hours given D5W to slow down correction and sodium came down to 125 goal of therapy is a rate of change of 6 - 8mmol/L in 24 hours (i.e. no higher than 128mmol/L by 13:30 today) risk factors for low sodium: SSRI use history of alcohol abuse pain narcotic use PPI use diuretic use (lasix) TSH and cortisol okay follow trend of repeat sodiums I will continue follow patient with you while she remains hospitalized and make further recommendations as deemed necessary. Thank you for allowing me to participate in the care of this patient. History of Present Illness Reason for Consult Consult date: 04/04/24 Reason for consult: hyponatremia Chief Complaint Chief complaint: Suicide Attempt/Hyponatremia/Altered Mental Status History of Present Illness Narrative: The patient is a 63-year-old female with a past medical history as outlined below who presented to [facility] Emergency room with complaints of chest discomfort and intentional Cymbalta overdose. Apparently, the patient has been under an increased amount of stress in the last several days if not longer. Her recently lost her job and they are still awaiting his disability determination given his chronic back issues and problems. This has led to more stress by the fact of financial constraints as well. Because of these recent stressors, she is admitted to increasing alcohol intake/ abuse but she is known to have episodes of binge drinking as well. She apparently has been binge drinking for last three or four days and has had thoughts of suicide which subsequently led to her taking multiple doses of Cymbalta in attempt to end her life. When she realized what she had done and informed her , she was brought to the emergency room for further assessment. Poison Control was contacted when she arrived in the ER and was recommended that she call be monitored closely for signs of QT prolongation which her initial EKG did not show. She was noted be quite anxious on arrival to the ER and reported chest discomfort at that time with negative EKG changes. She was subsequently given Ativan for her symptoms which improved both her chest discomfort and anxiety. Routine blood work demonstrated his sodium level of 118 and a repeat sodium level 4 hr later was 121 after she had received a L of normal saline. She reports a history of hyponatremia in the context of her alcohol intake/ binge drinking although her most recent sodium level in the [employer] system was well within normal limits. Given the symptoms that led to her alcohol intake in subsequent intentional overdoses Cymbalta, she was admitted to the ICU for closer monitoring in conjunction with monitoring her sodium level. Since her admission, there has been some concern of possible over-correction with her sodium level but with the use of D5W IV fluids her sodium level has slowed down to a more appropriate rate of correction. Renal consultation was requested due to her acute hyponatremia. As much as her previous sodium levels have been well within normal limits she does have a history of hyponatremia in the past which both the patient and her confirmed have been secondary to her excessive alcohol intake / alcohol abuse. Presumably, given the above history that led to her admission, it is felt that her increasing alcohol intake in the last three or four days prior to her admission may have likely precipitated her drop in sodium level. Aside from her issues related to suicide, she has not had any issues or problems with neurological sequelae since her admission a
[2024-04-04] MEDS: POTASSIUM CHLORIDE 20 MEQ PACKET (FOR LIQUID) 40 MEQ PO (12:01)
--- NOTE | 2024-04-04 12:12 | PC.NURSE ---
Updated Dr. Good with repeat sodium results from 1030. New order to redraw sodium level at 1330
[2024-04-04 14:08] LABS: Sodium 128 mmol/L (137-145)
--- NOTE | 2024-04-04 14:16 | PC.NURSE ---
Updated Dr. Good with sodium results from 1350. New order to repeat sodium level at 2100, and call if less than 128
[2024-04-04] MEDS: POTASSIUM CHLORIDE 20 MEQ PACKET (FOR LIQUID) PO (16:29)
[2024-04-04] MEDS: oxyCODONE HCL (*CRX) 5 MG TAB IR 15 MG PO (20:20)
[2024-04-04 21:23] LABS: Sodium 130 mmol/L (137-145)
[2024-04-05] VITALS: PULSE 108
[2024-04-05 04:00] VITALS: BP 121/84; PULSE 111; PULSE 121; RESP 20; TEMP 36.8; O2SAT 95
[2024-04-05 05:59] LABS: Anion Gap 10 mmol/L (4-12); Blood Urea Nitrogen 10 mg/dL (7-17); Calcium 9.7 mg/dL (8.4-10.2); Carbon Dioxide 25 mmol/L (22-30); Chloride 98 mmol/L (98-107); Estimated CRCL calculation 55 ml/min; Estimated Glomerular Filt Rate 50; Glucose 102 mg/dL (65-110); Potassium 4.2 mmol/L (3.4-5.0); Sodium 133 mmol/L (137-145)
[2024-04-05] MEDS: LEVOTHYROXINE SODIUM 50 MCG TABLET PO (06:12)
[2024-04-05 08:00] VITALS: BP 103/70; PULSE 121; PULSE 122; RESP 25; TEMP 36.9; O2SAT 92
[2024-04-05] MEDS: POTASSIUM CHLORIDE 20 MEQ PACKET (FOR LIQUID) PO (08:05)
[2024-04-05] MEDS: amLODIPine BESYLATE 5 MG TABLET PO (08:06)
[2024-04-05] MEDS: CHOLECALCIFEROL 1,000 UNITS TABLET 5000 UNITS PO (08:06)
[2024-04-05] MEDS: GABAPENTIN 300 MG CAPSULE PO ×2 (08:06→14:35)
[2024-04-05] MEDS: MULTIVITAMINS THERAPEUTIC TAB (*BKC) 1 TABLET PO (08:06)
[2024-04-05] MEDS: CYANOCOBALAMIN 1,000 MCG TABLET 1000 MCG PO (08:07)
[2024-04-05] MEDS: THIAMINE HCL 50 MG TABLET PO (08:07)
[2024-04-05] MEDS: ATORVASTATIN 40 MG TABLET PO (08:07)
[2024-04-05] MEDS: FOLIC ACID 1 MG TABLET PO (08:07)
[2024-04-05] MEDS: ASPIRIN 81 MG ENTERIC TABLET PO (08:07)
[2024-04-05] MEDS: PANTOPRAZOLE 40 MG TABLET PO (08:07)
[2024-04-05] MEDS: ENOXAPARIN 40 MG/0.4 ML SYRINGE SUB-Q (08:07)
[2024-04-05] MEDS: oxyCODONE HCL (*CRX) 5 MG TAB IR 15 MG PO (08:58)
--- NOTE | 2024-04-05 09:46 | PM.IMPN ---
Progress Note: A&P Assessment and Plan (1) Drug overdose, intentional: Qualifiers: Encounter type: initial encounter Qualified Code(s): T50.902A - Poisoning by unspecified drugs, medicaments and biological substances, intentional self-harm, initial encounter Code(s): T50.902A - Poisoning by unspecified drugs, medicaments and biological substances, intentional self-harm, initial encounter Status: Acute (2) Acute hyponatremia: Code(s): E87.1 - Hypo-osmolality and hyponatremia Status: Acute (3) Hypothyroid: Qualifiers: Hypothyroidism type: acquired Qualified Code(s): E03.9 - Hypothyroidism, unspecified Code(s): E03.9 - Hypothyroidism, unspecified Status: Acute (4) Opiate withdrawal: Code(s): F11.93 - Opioid use, unspecified with withdrawal Status: Acute (5) Alcoholism: Code(s): F10.20 - Alcohol dependence, uncomplicated Status: Acute (6) Major depressive disorder: Qualifiers: Active/Remission status: currently active Major depression episode severity: severe Major depression recurrence: recurrent Psychotic features: without psychotic features Qualified Code(s): F33.2 - Major depressive disorder, recurrent severe without psychotic features Code(s): F32.9 - Major depressive disorder, single episode, unspecified Status: Acute Plan Patient has active major depressive disorder with suicidal ideation. She has attempted to take Cymbalta. Poison Control has been contacted. Patient is beyond peak for medication effect. Patient has not had any QT prolongation. Patient will need evaluation by crisis once medically stable. No arrhythmias noted on telemetry however patient is tachycardic. sinus tachycardia due to acute opiate withdrawal given patient's dilated pupils, anxiety and diarrhea. continue patient's home baclofen, diclofenac topical, naproxen, and Tylenol. Cymbalta has been placed on hold due to overdose and hyponatremia. Will hold the patient's home murmur on as this could also cause QT prolongation. Given the patient's looser stools will hold patient's home Movantik. acute hyponatremia, hypokalemia, Patient has acute hyponatremia was likely multifactorial due to alcohol intoxication and or medication effect. Patient reports that she always gets hyponatremic when she drinks heavily. The patient has already had significant correction of her hyponatremia. Her sodium had elevated from 118-121 after 1 L bolus. ordered a stat sodium level which had increased up to 127. started the patient on D5 water at 75 mL an hour with repeat sodium to be obtained 4 hours later. Given rapid correction hyponatremia, hypokalemia Likely resulting from alcohol intoxication than other causes. hold the patient's home Lasix. replete with potassium chloride 04/05: Hyponatremia partially corrected, sodium 133 today, potassium 4.2, Patient is alcoholic. She is on chronic folic acid and thiamine supplementation due to history of gastric bypass and alcoholism. This will be continued. Will check CIWA scores. Directions have been given to nursing to call if CIWA score greater than 8 for further medications as I do not Wanna add additional medications unless needed. 04/05: I saw and examined patient, CIWA score 0. Patient denied suicide ideation now and new suicide plan for future. patient med have dysfunction because of alcohol intoxication, electrolyte disorder. Patient states she did not intend to hurt yourself. now patient is medically stable, patient is ready to be discharged today. Will request critical team to evaluate patient before discharge patient Subjective Date/time seen: 04/05/24 09:46 Interval history: I saw exam patient today, patient feels comfortable, denies headache, chest pain, shortness of breath, palpitation, abdomen pain, nausea vomiting diarrhea dysuria. Labs reviewed, sodium level improving slowl
--- NOTE | 2024-04-05 09:50 | PM.PNNEP ---
Progress Note: A&P Assessment and Plan (1) Hyponatremia: Code(s): E87.1 - Hypo-osmolality and hyponatremia Status: Acute Assessment and Plan: dloe improvement noted acute however, she and her report this has happened before with her alcohol abuse some concern with overcorrection: sodium went from 118 to 127 in less than 24 hours given D5W to slow down correction and sodium came down to 125 goal of therapy is a rate of change of 6 - 8mmol/L in 24 hours (i.e. no higher than 128mmol/L by 13:30 today) risk factors for low sodium: SSRI use history of alcohol abuse pain narcotic use PPI use diuretic use (lasix) TSH and cortisol okay follow trend of repeat sodiums Will continue to follow. Subjective Date/time seen: 04/05/24 09:50 Interval history: Follow-up for acute hyponatremia. Sodium has been slowly improving without any specific intervention to date (auto-correcting as noted by increased urine output); was given D5W IVFs yesterday to ensure overcorrection did not occur which was successful; mentation appears stable at this time. Exam Narrative: General: WD/WN female in NAD Heart: normal S1 and S2; no rub Lungs: clear to auscultation Abdomen: soft, nontender, nondistended, positive bowel sounds Extremities: no cyanosis or clubbing; no edema Skin: warm and dry Objective Data Vital Signs Vital Signs: Vital Signs Temp Pulse Pulse Resp BP Pulse Ox O2 Del Method 04/05/24 08:00 121 H 04/05/24 08:00 Room Air 04/05/24 08:00 98.5 F 122 H 25 H 103/70 92 04/05/24 04:00 98.3 F 121 H 20 121/84 95 04/05/24 04:00 111 H 04/05/24 00:00 108 H 04/04/24 20:00 Room Air 04/04/24 20:00 107 H 141/102 H 04/04/24 20:00 98.1 F 107 H 20 141/102 H 98 04/04/24 20:00 107 H 04/04/24 16:00 108 H 04/04/24 16:14 98.6 F 117 H 22 H 142/97 H 95 Intake/Output Intake/Output: Intake & Output 05/0604/03/24 04/04/24 04/05/24 23:59 23:59 23:59 23:59 Intake Total 1000 2170 720 Output Total 5600 200 Balance 1000 -3430 520 Meds/Results Medications: Active Medications Generic Name Dose Route Start Last Admin Trade Name Freq PRN Reason Stop Dose Admin Acetaminophen 650 mg 04/03/24 18:34 04/03/24 20:06 Acetaminophen 325 Mg Tablet PO 650 mg Q6H PRN Administration Mild Pain (1-3) or Fever Amlodipine Besylate 5 mg 04/04/24 09:00 04/05/24 08:06 Amlodipine Besylate 5 Mg Tablet PO 5 mg DAILY KJ Administration Aspirin 81 mg 04/04/24 09:00 04/05/24 08:07 Aspirin 81 Mg Enteric Tablet PO 81 mg DAILY KJ Administration Atorvastatin Calcium 40 mg 04/04/24 09:00 04/05/24 08:07 Atorvastatin 40 Mg Tablet PO 40 mg DAILY KJ Administration Baclofen 10 mg 04/04/24 02:56 Baclofen 10 Mg Tablet PO TID PRN Muscle Spasm Cyanocobalamin 1,000 mcg 04/04/24 09:00 04/05/24 08:07 Cyanocobalamin 1,000 Mcg Tablet PO 05/04/24 08:59 1,000 mcg DAILY KJ Administration Diclofenac Sodium 1 applic 04/04/24 02:56 Diclofenac Sodium 1% 100 Gm Gel (*Bkc) TOPICAL QID PRN Muscle and joint pain Enoxaparin Sodium 40 mg 04/04/24 09:00 04/05/24 08:07 Enoxaparin 40 Mg/0.4 Ml Syringe SUB-Q 40 mg DAILY KJ Administration Folic Acid 1 mg 04/04/24 09:00 04/05/24 08:07 Folic Acid 1 Mg Tablet PO 1 mg DAILY KJ Administration Gabapentin 300 mg 04/04/24 09:00 04/05/24 08:06 Gabapentin 300 Mg Capsule PO 300 mg TID KJ Administration Levothyroxine Sodium 50 mcg 04/04/24 06:30 04/05/24 06:12 Levothyroxine Sodium 50 Mcg Tablet PO 50 mcg DAILY@0630 KJ Administration Multivitamins Therapeutic 1 tablet 04/04/24 09:00 04/05/24 08:06 Multivitamins Therapeutic Tab (*Bkc) PO 1 tablet DAILY KJ Administration Naproxen 250 mg 04/04/24 02:56 04/04/24 05:43 Na
[2024-04-05 10:00] VITALS: PULSE 109
--- NOTE | 2024-04-05 10:52 | PM.DS ---
DS: Admitting Diagnosis Discharge Date 04/05/24 Admitting Diagnosis (1) Drug overdose, intentional: ?Qualifiers: ?Encounter type:?initial encounter? Qualified Code(s):?T50.902A - Poisoning by unspecified drugs, medicaments and biological substances, intentional self-harm, initial encounter ?Code(s): T50.902A - Poisoning by unspecified drugs, medicaments and biological substances, intentional self-harm, initial encounter ?Status:?Acute (2) Acute hyponatremia: ?Code(s): E87.1 - Hypo-osmolality and hyponatremia ?Status:?Acute (3) Hypothyroid: ?Qualifiers: ?Hypothyroidism type:?acquired? Qualified Code(s):?E03.9 - Hypothyroidism, unspecified ?Code(s): E03.9 - Hypothyroidism, unspecified ?Status:?Acute (4) Opiate withdrawal: ?Code(s): F11.93 - Opioid use, unspecified with withdrawal ?Status:?Acute (5) Alcoholism: ?Code(s): F10.20 - Alcohol dependence, uncomplicated ?Status:?Acute (6) Major depressive disorder: DS: Discharge Diagnosis Discharge Diagnosis (1) Drug overdose, intentional: Qualifiers: Encounter type: initial encounter Qualified Code(s): T50.902A - Poisoning by unspecified drugs, medicaments and biological substances, intentional self-harm, initial encounter Code(s): T50.902A - Poisoning by unspecified drugs, medicaments and biological substances, intentional self-harm, initial encounter Status: Acute (2) Acute hyponatremia: Code(s): E87.1 - Hypo-osmolality and hyponatremia Status: Acute (3) Hypothyroid: Qualifiers: Hypothyroidism type: acquired Qualified Code(s): E03.9 - Hypothyroidism, unspecified Code(s): E03.9 - Hypothyroidism, unspecified Status: Acute (4) Opiate withdrawal: Code(s): F11.93 - Opioid use, unspecified with withdrawal Status: Acute (5) Alcoholism: Code(s): F10.20 - Alcohol dependence, uncomplicated Status: Acute (6) Major depressive disorder: Qualifiers: Active/Remission status: currently active Major depression episode severity: severe Major depression recurrence: recurrent Psychotic features: without psychotic features Qualified Code(s): F33.2 - Major depressive disorder, recurrent severe without psychotic features Code(s): F32.9 - Major depressive disorder, single episode, unspecified Status: Acute DS: Summary Hospital Course Hospital Course: Patient has active major depressive disorder with suicidal ideation. She has attempted to take Cymbalta. Poison Control has been contacted. Patient is beyond peak for medication effect. Patient has not had any QT prolongation. Patient will need evaluation by crisis once medically stable. No arrhythmias noted on telemetry however patient is tachycardic. sinus tachycardia due to acute opiate withdrawal given patient's dilated pupils, anxiety and diarrhea. continue patient's home baclofen, diclofenac topical, naproxen, and Tylenol. Cymbalta has been placed on hold due to overdose and hyponatremia. Will hold the patient's home murmur on as this could also cause QT prolongation. Given the patient's looser stools will hold patient's home Movantik. 04/05 On discharge, discontinue Cymbalta, patient needs to see primary care doctor or a psychiatrist for evaluation before starting Cymbalta acute hyponatremia, hypokalemia, Patient has acute hyponatremia was likely multifactorial due to alcohol intoxication and or medication effect. Patient reports that she always gets hyponatremic when she drinks heavily. The patient has already had significant correction of her hyponatremia. Her sodium had elevated from 118-121 after 1 L bolus. ordered a stat sodium level which had increased up to 127. started the patient on D5 water at 75 mL an hour with repeat sodium to be obtained 4 hours later. Given rapid correction hyponatremia, hypokalemia Likely resulting from alcohol
[2024-04-05 12:00] VITALS: PULSE 111
[2024-04-05 12:35] VITALS: BP 117/74; PULSE 120; RESP 23; TEMP 36.8; O2SAT 95
[2024-04-05 13:04] LABS: Kappa\\Lambda Light Chains 1.06 (0.26-1.65)
[2024-04-05 15:09] LABS: Osmolality, Urine 137 mOsm/kg (50-1200)
== END 2024-04-05 15:27 | disposition home or self-care (01) ==
LOC: ANHED 15:49 → ANHICU 17:10
PROVIDERS: Internal Medicine; Internal Medicine Nephrology; Admitting Provider Internal Medicine; Emergency Provider Emergency Medicine; Visit Provider Hospitalist
DX: T43.212A Poisoning by selective serotonin and norepinephrine reuptake inhibitors, intentional self-harm, initial encounter (principal); R45.851 Suicidal ideations; E87.1 Hypo-osmolality and hyponatremia; F33.2 Major depressive disorder, recurrent severe without psychotic features; F10.20 Alcohol dependence, uncomplicated; F11.93 Opioid use, unspecified with withdrawal; I10 Essential (primary) hypertension; E78.5 Hyperlipidemia, unspecified; D50.9 Iron deficiency anemia, unspecified; F41.9 Anxiety disorder, unspecified; M06.9 Rheumatoid arthritis, unspecified; L40.50 Arthropathic psoriasis, unspecified; E53.8 Deficiency of other specified B group vitamins; E66.01 Morbid (severe) obesity due to excess calories; Z68.41 Body mass index [BMI] 40.0-44.9, adult; Z79.82 Long term (current) use of aspirin; G47.33 Obstructive sleep apnea (adult) (pediatric); Z91.198 Patient's noncompliance with other medical treatment and regimen for other reason; E03.9 Hypothyroidism, unspecified; Z98.84 Bariatric surgery status; Z20.822 Contact with and (suspected) exposure to COVID-19
CPT/HCPCS: 36415; 70450; 80048; 80053; 80307; 81003; 81050; 82533; 82570; 83735; 83883; 83930; 83935; 84156; 84295; 84300; 84443; 84478; 84540; 85025; 85027; 87635; 93005; 96361; 96365; 96366; 96372; 96374; 96375; 96376; 99285; A9270; G0378; J1650; J2060; J2405; J7030; J7060

== ENCOUNTER 2024-05-18 14:39 | Emergency (ER) | payer OTHER, MEDICAID, SELFPAY ==
--- NOTE | 2024-05-18 15:14 | PC.NURSE ---
patient called family member to pick them up because they did not want to be here. patient had no complaints other than wanting to leave. patient refused vital signs from triage and intake nurse. patient was being belligerent and demanding to staff. patient's family member picked them up and they were educated on symptoms warranting a return to the ER prior to leaving.
== END 2024-05-18 15:32 | disposition left against medical advice (07) ==
PROVIDERS: PCP Nurse Practitioner Family
DX: Z53.21 Procedure and treatment not carried out due to patient leaving prior to being seen by health care provider (principal)
CPT/HCPCS: 99199